=== PATIENT | female | born 1995 | race Caucasian/White ===

== ENCOUNTER 2018-02-20 18:08 | Emergency (ER) | payer OTHER ==
[2018-02-20 18:25] VITALS: BP 105/57
--- NOTE | 2018-02-20 18:45 | UC ---
Abdominal Pain Female HPI - HPI Summary HPI Summary: 23 y/o female presents to the urgent care c/o acute abdominal pain for the past 3 days. Symptoms started w/ sudden onset of diffuse epigastric pain, then diarrhea developed. She has had 3-4 episodes of watery diarrhea. Today abdominal pain is constant, twisting in character and radiating to the RLQ associated w/ low grade fever, nausea and decrease appetite. Pt has only applied a hot pad to alleviate symptoms. LMP: started today. Pt is sexually active. Pt deneis SOB, chest pain, vomiting, ARANA, dizziness. Pt denies Hx of STD' s, ovarian cysts, or urinary symptoms. - History of Current Complaint Chief Complaint: EDAbdPain Stated Complaint: ABDOMINAL PAIN Time Seen by Provider: 02/20/18 18:43 Hx Obtained From: Patient Hx Last Menstrual Period: 02/18/18 ?: No Onset/Duration: Gradual Onset, Lasting Days - 3 days Timing: Constant Severity Initially: Mild Severity Currently: Severe Pain Intensity: 8 Pain Scale Used: 0-10 Numeric Location: Diffuse Radiates: Yes Radiates to: RLQ Character: Sharp, Other - twisting Aggravating Factor(s): Movement Alleviating Factor(s): NPO Associated Signs and Symptoms: Positive: Fever - low grade fever, Nausea, Diarrhea - Risk Factors Ectopic Risk Factor: Negative Ovarian Torsion Risk Factor: Negative Allergies/Adverse Reactions: Allergies Allergy/AdvReac Type Severity Reaction Status Date / Time No Known Allergies Allergy Verified 02/20/18 18:24 Home Medications: Home Medications Divalproex Sodium 250 mg PO SEE INSTRUCTIONS 02/20/18 [History Confirmed ] Duloxetine HCl [Cymbalta] 30 mg PO DAILY 02/20/18 [History Confirmed 02/20/18] Iron 10 Mg 1 tab DAILY 02/20/18 [History Confirmed 02/20/18] PMH/Surg Hx/FS Hx/Imm Hx Previously Healthy: Yes Neurological History: Seizures Psychological History: Depression - Surgical History Surgical History: Yes Surgery Procedure, Year, and Place: ear tubes numerous. T & A - Family History Known Family History: Positive: Cardiac Disease, Hypertension, Diabetes Family History: Dyslipidemia - Social History Occupation: Student Lives: With Family Alcohol Use: None Substance Use Type: None Smoking Status (MU): Light Every Day Tobacco Smoker Type: Cigarettes Amount Used/How Often: 4-5 cigs daily When Did the Patient Quit Smoking/Using Tobacco: 1 YR AGO - Immunization History Most Recent Influenza Vaccination: [id number] Review of Systems Constitutional: Fever - low grade subjective at home, Fatigue, Other - decrease appetite Skin: Negative Eyes: Negative ENT: Negative Respiratory: Negative Cardiovascular: Negative Gastrointestinal: Abdominal Pain, Diarrhea, Nausea Genitourinary: Negative Motor: Negative Neurovascular: Negative Musculoskeletal: Negative Neurological: Negative Psychological: Negative Is Patient Immunocompromised?: No All Other Systems Reviewed And Are Negative: Yes Physical Exam - Summary Physical Exam Summary: Vital Signs Reviewed: Yes General:Patient is a well developed and nourished female who is laying in the examining table w/ mild pain distress. Eyes: Positive: Conjunctiva Clear - PERRLA, EOMI, fundi grossly normal ENT: Positive: Normal ENT inspection, Hearing grossly normal, Pharynx normal, TMs normal Neck: Positive: Supple, Nontender, No Lymphadenopathy Respiratory: Positive: Chest non-tender, Lungs clear, Normal breath sounds, No respiratory distress Cardiovascular: Positive: RRR,S1 and S2 present, No Murmur, Pulses Normal, Brisk Capillary Refill Abdomen Description: Positive: Abd: Flat with no distention. No surface trauma , scars, incisions. hyperactive bowel sounds present in all four quadrants. periumbilical and RLQ tenderness w/ mild guarding, no rigidity to palpation. No masses palpated, no pulsation in epigastric area. No organomegaly. Negative Florence signs. No rebound in the lower quadrants. PT over McBurney s point. Good femoral pulses bilaterally. No hernia noted. No CVAT bilaterally Musculoskeletal: Positive: Strength Intact, ROM Intact, No Edema,FROM in all major joints, no edema, no cyanosis or clubbing. Neuro: Alert and oriented x 3. No acute neurological deficits. Speech is normal. Psychological: WNL Skin: Dry and warm Triage Information Reviewed: Yes Vital Signs: Initial Vital Signs Temp 97.8 F 02/20/18 18:19 Pulse 75 02/20/18 18:19 Resp 20 02/20/18 18:19 BP 105/57 02/20/18 18:19 Pulse Ox 97 02/20/18 18:19 Abd Pain Female Course/Dx - Course Course Of Treatment: 23 y/o female presents to the urgent care c/o acute abdominal pain for the past 3 days. Symptoms started w/ sudden onset of diffuse epigastric pain, then diarrhea developed. She has had 3-4 episodes of watery diarrhea. Today abdominal pain is constant, twisting in character and radiating to the RLQ associated w/ low grade fever, nausea and decrease appetite. Pt has only applied a hot pad to alleviate symptoms. LMP: started today. Pt is sexually active. Pt deneis SOB, chest pain, vomiting, ARANA, dizziness. Pt denies Hx of STD's, ovarian cysts, or urinary symptoms.Hx obtained. Pt w/ periumbilical and RLQ tenderness w/ mild guarding and McBurney' s positive on examination. At this moment Pt needs blood work and further images to r/o appendicitis or ovarian cyst. Pt's symptoms discussed w/ Dr Callejas and she aggreed Pt should go to the [facility]. Pt explained the need for a higher level of care. Pt offered ambulance transferred and risks of not taking it. Pt declined and her boyfriend stated he will take her by private care. I spoke w/ Dr Patel at [facility] and discussed Pt's symptoms w/ him. He accepted Pt. Pt left clinic hemodynamically stable, A&OX3. - Differential Dx/Diagnosis Differential Diagnosis: Appendicitis, Bowel Obstruction, Ovarian Cyst, Pelvic Inflammatory Disease, , Renal Colic, Urinary Tract Infection Provider Diagnoses: 1- Acute abdominal pain Discharge - Sign-Out/Discharge Documenting (check all that apply): Patient Departure - Pt strongly recommeded to go to the [facility] for further management is her presenting symptoms. All imaging exams completed and their final reports reviewed: No Studies - Discharge Plan Condition: Stable Disposition: HOME-RECOMMEND TO ED Patient Education Materials: Acute Abdominal Pain (ED) Referrals: Jacque Arteaga MD [Primary Care Provider] - Additional Instructions: I think you need a higher level or care for your presenting symptoms. I highly recommend you to go to the ER for further evaluation and treatment. The risks of not going can be , sepsis, peritonitis, appendicitis etc. I spoke to the [facility] attending Dr. Koko Patel. They are expecting you. - Billing Disposition and Condition Condition: STABLE Disposition: Home-Recommend to ED
--- NOTE | 2018-02-21 07:54 | UC ---
Discharge - Sign-Out/Discharge Documenting (check all that apply): Post-Discharge Follow Up All imaging exams completed and their final reports reviewed: No Studies - Discharge Plan Condition: Stable Disposition: HOME-RECOMMEND TO ED Patient Education Materials: Acute Abdominal Pain (ED) Referrals: Jacque Arteaga MD [Primary Care Provider] - Additional Instructions: I think you need a higher level or care for your presenting symptoms. I highly recommend you to go to the ER for further evaluation and treatment. The risks of not going can be , sepsis, peritonitis, appendicitis etc. I spoke to the [facility] attending Dr. Koko Patel. They are expecting you. - Billing Disposition and Condition Condition: STABLE Disposition: Home-Recommend to ED
== END 2018-02-20 19:15 | disposition home health service (06) ==
LOC: UCCORT 18:08
DX: R10.0 Acute abdomen (principal); R50.9 Fever, unspecified; R11.0 Nausea; R19.7 Diarrhea, unspecified; R56.9 Unspecified convulsions; F32.9 Major depressive disorder, single episode, unspecified; F17.210 Nicotine dependence, cigarettes, uncomplicated
CPT/HCPCS: 99212; G0463

== ENCOUNTER 2019-04-14 15:54 | Emergency (ER) | payer BC, OTHER ==
[2019-04-14 17:33] VITALS: BP 120/70
--- NOTE | 2019-04-14 17:33 | UC ---
Complaint Female HPI - HPI Summary HPI Summary: Patient is a 24yo female presenting with vaginal itching, "clumpy discharge," and painful vulva x2 days. Patient states she gets recurrent yeast infections. Notes this feels exactly like her recent infections. Denies urinary symptoms. Denies abdominal pain or pressure. Denies any concern for STI. - History Of Current Complaint Stated Complaint: PERSONAL Hx Obtained From: Patient Hx Last Menstrual Period: 03/25/19 Onset/Duration: Gradual Onset, Lasting Days Severity Currently: Mild Pain Intensity: 4 Pain Scale Used: 0-10 Numeric - Allergies/Home Medications Allergies/Adverse Reactions: Allergies Allergy/AdvReac Type Severity Reaction Status Date / Time No Known Allergies Allergy Verified 04/14/19 17:33 PMH/Surg Hx/FS Hx/Imm Hx Previously Healthy: Yes - Surgical History Surgical History: Yes Surgery Procedure, Year, and Place: ear tubes numerous. T & A - Family History Known Family History: Positive: Cardiac Disease, Hypertension, Diabetes Family History: Dyslipidemia - Social History Alcohol Use: None Substance Use Type: None Smoking Status (MU): Light Every Day Tobacco Smoker Type: Cigarettes Amount Used/How Often: 4-5 cigs daily When Did the Patient Quit Smoking/Using Tobacco: 1 YR AGO - Immunization History Most Recent Influenza Vaccination: [id number] Review of Systems All Other Systems Reviewed And Are Negative: Yes Constitutional: Positive: Negative. Negative: Fever, Chills Respiratory: Positive: Negative Cardiovascular: Positive: Negative Gastrointestinal: Positive: Negative. Negative: Abdominal Pain, Vomiting, Diarrhea, Nausea Genitourinary: Positive: Vaginal/Penile Itching, Vaginal/Penile Discharge - "white clumpy", Vaginal/Penile Tenderness - vulvar tenderness. Negative: Dysuria, Hematuria, Frequency, Urgency, Vaginal/Penile Burning, Vaginal/Penile Pain, Ulceration/Lesion, Abnormal Bleeding Physical Exam Triage Information Reviewed: Yes Appearance: Well-Appearing, No Pain Distress, Well-Nourished Vital Signs: Initial Vital Signs Temp 98.9 F 04/14/19 17:30 Pulse 72 04/14/19 17:30 Resp 16 04/14/19 17:30 BP 120/70 04/14/19 17:30 Pulse Ox 98 04/14/19 17:30 Eyes: Positive: Conjunctiva Clear ENT: Positive: Hearing grossly normal Neck: Positive: Supple Respiratory: Positive: No respiratory distress Pelvic Exam: Positive: Other - Declined pelvic exam Neurological: Positive: Alert Psychological: Positive: Age Appropriate Behavior Complaint Female Dx - Course Course Of Treatment: Patient declined pelvic exam. Declined swab for culture for yeast infection vs BV, stating she knows it is a yeast infection. Declined testing for other STI' s. Instructed patient to take Diflucan as prescribed for her yeast infection symptoms. Instructed her to follow up with PCP for further evaluation if symptoms persist. Patient voiced understanding and agreed to the treatment plan. - Differential Dx/Diagnosis Provider Diagnosis: Vaginal yeast infection Discharge ED - Sign-Out/Discharge Documenting (check all that apply): Patient Departure All imaging exams completed and their final reports reviewed: No Studies - Discharge Plan Condition: Stable Disposition: HOME Prescriptions: Fluconazole 150 MG TAB* [Diflucan 150 MG TAB*] 300 mg PO SEE INSTRUCTIONS #2 tablet Patient Education Materials: Yeast Infection (ED) Referrals: Nohemy Wu, [employer]CE[employer]GR[employer]HER [employer]IST[employer] [Primary Care Provider] - If Needed Additional Instructions: As discussed, take Diflucan once today and once on for treatment of your yeast infection. Follow up with your PCP or the [facility] listed below if symptoms persist or worsen. - Billing Disposition and Condition Condition: STABLE Disposition: Home - Attestation Statements Provider Attestation: Chart reviewed. Pt not seen by me. I was available for consult. FLOR
== END 2019-04-14 17:49 | disposition home or self-care (01) ==
LOC: UCCORT 15:54
DX: B37.3 Candidiasis of vulva and vagina (principal); Z87.891 Personal history of nicotine dependence
CPT/HCPCS: 99212; G0463